=== PATIENT | female | born 1995 | race Caucasian/White ===

== ENCOUNTER 2016-08-18 20:05 | Emergency (ER) | payer OTHER ==
[~2016-08-18 20:05] MED LIST: PERCOCET1 TA1 PO
--- NOTE | 2016-08-18 22:02 | ED ORDER SUMMARY ---
..... Patient: MARIZA VALERO OrderSheet [facility] VisitID: [id number] [place] [address] 20y, F Registration Date/Time: 08/18/2016 ORDER SHEET Weight: 58.9 kg (stated) Allergies: No Known Drug Allergy GENERAL ORDERS: US Pelvic Complete w Transvag Urgent (20:32 08/18/2016 EKoroleva P.A.-C) (Ack 20:34 [facility] Stem Mounter) (Cancelled: CHANGE ORDER22:15 [facility] Stem Mounter) UA-Culture if indicated Urgent (20:33 08/18/2016 EKoroleva P.A.-C) (Ack 20:34 [facility] Stem Mounter) (20:48 EHassan R.N.) Urine Urgent (20:33 08/18/2016 EKoroleva P.A.-C) (Ack 20:34 [facility] Stem Mounter) (20:48 EHassan R.N.) Pelvic Exam Setup (20:33 08/18/2016 EKoroleva P.A.-C) (Ack 20:34 [facility] Stem Mounter) (20:48 EHassan R.N.) US Pelvic Complete Urgent (22:15 08/18/2016 [facility] Stem Mounter written order EKoroleva P.A.-C) (22:17 [facility] Stem Mounter) MEDICATION ORDERS: Macrobid PO 100 mg (NOW) (20:56 08/18/2016 EKoroleva P.A.-C) (21:31 EHassan R.N.) Motrin PO 800 mg (NOW) (21:16 08/18/2016 EKoroleva P.A.-C) (21:31 EHassan R.N.) Tramadol PO 50 mg (NOW) (21:16 08/18/2016 EKoroleva P.A.-C) (21:31 EHassan R.N.) IV FLUIDS: ORDER SHEET NOTES: [Electronically signed by Jenae BrewerAMarcin-C (22:30 08/18/2016)] [Electronically signed by Marti Patel RHina (22:42 08/18/2016)] [Electronically locked/signed by Marti Patel R.N. (22:42 08/18/2016)]
--- NOTE | 2016-08-18 22:02 | ED CLINICAL REPORT ---
Clinical Report - Physicians/Mid Levels [facility] [address] [place] [address] 08/18/2016 20:06 [id number] Time Seen: 20:33 Aug 18 2016. Arrived- By private vehicle. HISTORY OF PRESENT ILLNESS Chief Complaint: PELVIC PAIN. This started 3 weeks ENERGY ATTORNEY and still present. The symptoms are described as mild. The patient has had moderate, constant right-sided pelvic pain. No pain with urination or urinary frequency. (Patient reports IUD insertion in May, last menstrual period about a week previously lasting for 3-4 days. Pain has been consistent. No associated emesis. No urgency or frequency. Patient denies diarrhea. Denies any recent travel. Denies any recent antibiotic use. Similar episode a few years previously with excision of a dermoid-like cyst, On the right side.). REVIEW OF SYSTEMS No vomiting, headache, fever or eye discomfort. All systems otherwise negative, except as recorded above. PAST HISTORY Problems: Substance Abuse. Dyspnea. Pyelonephritis. Ovarian Cyst. Additional Surgeries: Ovary surgery. Medications: None. Allergies: No Known Drug Allergy. SOCIAL HISTORY Current every day heavy tobacco smoker. Alcohol use. No drug use. ADDITIONAL NOTES The nursing notes have been reviewed. PHYSICAL EXAM Vital Signs: 08/18/2016 20:23 BP: 124/83. HR: 94. RR: 16. O2 saturation: 96%. Temp: 98.1 F. Pain level now: 4/10. Appearance: Alert. CVS: Heart sounds normal. Respiratory: No respiratory distress. Breath sounds normal. Abdomen: Soft and nontender. : Speculum and bimanual exam performed. External inspection normal. Speculum exam normal. No cervical dilation. No cervicitis. Bimanual exam normal. Tenderness present on bimanual exam. No adnexal tenderness. Skin: Skin warm. Neuro: Oriented X 3. LABS, X-RAYS, AND EKG Laboratory Tests: UA-Culture if indicated: (STEVE: 08/18/2016 20:30) ( MsgRcvd 08/18/2016 20:52) Final results Test Result Flag Units (Reference) URINE COLOR YELLOW URINE APPEARANCE SL CLOUDY URINE GLUCOSE NEGATIVE (NEGATIVE) URINE BILIRUBIN NEGATIVE (NEGATIVE) URINE KETONE NEGATIVE (NEGATIVE) URINE SPECIFIC GRAVITY 1.010 (1.010-1.030) URINE PH 7.0 (5.0-8.0) URINE PROTEIN 1+ (NEGATIVE) URINE UROBILINOGEN 0.2 EU/dL (0.2-1.0) URINE NITRITE NEGATIVE (NEGATIVE) URINE BLOOD 2+ (NEGATIVE) URINE LEUK ESTERASE POSITIVE (NEGATIVE) URINE RBC 1-3 rbc/hpf (0-1) URINE WBC 25-50 wbc/hpf (0-1) URINE EPITHELIAL CELLS 3-5 EPI/hpf (0-5) URINE BACTERIA MODERATE (2+ TO 3+) (NONE SEEN) URINE COMMENT CULTURE INDICATED 1+ MUCUSURINE CULTURES ARE SET-UP BASED ON THE FOLLOWING CRITERIA:POSITIVE NITRITEPOSITIVE LEUKOCYTE ESTERASEGREATER THAN 10 WHITE BLOOD CELLSMODERATE (2+) OR GREATER BACTERIA Urine: (STEVE: 08/18/2016 20:30) ( MsgRcvd 08/18/2016 20:45) Final results Test Result Flag Units (Reference) URINE NEGATIVE . Note - Tests: (US: r. ovarian flow, r. ovarian simple cyst 3 cm). PROGRESS AND PROCEDURES Course of Care: Track Welder exam with BRIDGETTE Ball. Patient was signs of a right ovarian cyst, no signs of torsion, PID or ectopic. Signs of cystitis, patient will be treated for such. Encouraged by mouth intake, and follow up with CLOTH DYEING RANGE TENDER. Patient understands plan. No signs of acute surgical abdominal pathology. 08/18/2016 21:31 BP: 114/69. HR: 69. RR: 15. O2 saturation: 96%. Pain level now: 5/10. Patient is stable. Symptoms better. Patient/family counseled. Disposition: Discharged. CLINICAL IMPRESSION Acute cystitis. Single simple right ovarian cyst. INSTRUCTIONS Warnings: Further evaluation is necessary. Prescription Medications: Macrobid 100 mg: Take 1 capsule orally every 12 hours for 7 days. No refills. Substitution is permissible. Ultram 50 mg: take 1 orally every 8 hours for 3 days, as needed for pain. Dispense fifteen (15). No refills. Substitution is permissible. Pyridium 100 mg: take 1 orally every 8 hours. No refill. Substitution is permissible. (#6) Follow-up with: Devyn Arvizu MD, Obstetrics/Gynecology, , [facility], [address] [place] [address] Follow up in five days. Call for the next available appointment. (Electronically signed by Jenae Brewer P.A.-C 08/18/2016 22:30)
--- NOTE | 2016-08-18 22:02 | ED CLINICAL REPORT ---
Clinical Report - Physicians/Mid Levels Located Within [facility] [address] [place] [address] 08/18/2016 20:06 [id number] Time Seen: 20:33 Aug 18 2016. Arrived- By private vehicle. HISTORY OF PRESENT ILLNESS Chief Complaint: PELVIC PAIN. This started 3 weeks IP COUNSEL and still present. The symptoms are described as mild. The patient has had moderate, constant right-sided pelvic pain. No pain with urination or urinary frequency. (Patient reports IUD insertion in May, last menstrual period about a week previously lasting for 3-4 days. Pain has been consistent. No associated emesis. No urgency or frequency. Patient denies diarrhea. Denies any recent travel. Denies any recent antibiotic use. Similar episode a few years previously with excision of a dermoid-like cyst, On the right side.). REVIEW OF SYSTEMS No vomiting, headache, fever or eye discomfort. All systems otherwise negative, except as recorded above. PAST HISTORY Problems: Substance Abuse. Dyspnea. Pyelonephritis. Ovarian Cyst. Additional Surgeries: Ovary surgery. Medications: None. Allergies: No Known Drug Allergy. SOCIAL HISTORY Current every day heavy tobacco smoker. Alcohol use. No drug use. ADDITIONAL NOTES The nursing notes have been reviewed. PHYSICAL EXAM Vital Signs: 08/18/2016 20:23 BP: 124/83. HR: 94. RR: 16. O2 saturation: 96%. Temp: 98.1 F. Pain level now: 4/10. Appearance: Alert. CVS: Heart sounds normal. Respiratory: No respiratory distress. Breath sounds normal. Abdomen: Soft and nontender. : Speculum and bimanual exam performed. External inspection normal. Speculum exam normal. No cervical dilation. No cervicitis. Bimanual exam normal. Tenderness present on bimanual exam. No adnexal tenderness. Skin: Skin warm. Neuro: Oriented X 3. LABS, X-RAYS, AND EKG Laboratory Tests: UA-Culture if indicated: (STEVE: 08/18/2016 20:30) ( MsgRcvd 08/18/2016 20:52) Final results Test Result Flag Units (Reference) URINE COLOR YELLOW URINE APPEARANCE SL CLOUDY URINE GLUCOSE NEGATIVE (NEGATIVE) URINE BILIRUBIN NEGATIVE (NEGATIVE) URINE KETONE NEGATIVE (NEGATIVE) URINE SPECIFIC GRAVITY 1.010 (1.010-1.030) URINE PH 7.0 (5.0-8.0) URINE PROTEIN 1+ (NEGATIVE) URINE UROBILINOGEN 0.2 EU/dL (0.2-1.0) URINE NITRITE NEGATIVE (NEGATIVE) URINE BLOOD 2+ (NEGATIVE) URINE LEUK ESTERASE POSITIVE (NEGATIVE) URINE RBC 1-3 rbc/hpf (0-1) URINE WBC 25-50 wbc/hpf (0-1) URINE EPITHELIAL CELLS 3-5 EPI/hpf (0-5) URINE BACTERIA MODERATE (2+ TO 3+) (NONE SEEN) URINE COMMENT CULTURE INDICATED 1+ MUCUSURINE CULTURES ARE SET-UP BASED ON THE FOLLOWING CRITERIA:POSITIVE NITRITEPOSITIVE LEUKOCYTE ESTERASEGREATER THAN 10 WHITE BLOOD CELLSMODERATE (2+) OR GREATER BACTERIA Urine: (STEVE: 08/18/2016 20:30) ( MsgRcvd 08/18/2016 20:45) Final results Test Result Flag Units (Reference) URINE NEGATIVE . Note - Tests: (US: r. ovarian flow, r. ovarian simple cyst 3 cm). PROGRESS AND PROCEDURES Course of Care: Computer Science Professor exam with BRIDGETTE Ball. Patient was signs of a right ovarian cyst, no signs of torsion, PID or ectopic. Signs of cystitis, patient will be treated for such. Encouraged by mouth intake, and follow up with PATROL MAN. Patient understands plan. No signs of acute surgical abdominal pathology. 08/18/2016 21:31 BP: 114/69. HR: 69. RR: 15. O2 saturation: 96%. Pain level now: 5/10. Patient is stable. Symptoms better. Patient/family counseled. Disposition: Discharged. CLINICAL IMPRESSION Acute cystitis. Single simple right ovarian cyst. INSTRUCTIONS Warnings: Further evaluation is necessary. Prescription Medications: Macrobid 100 mg: Take 1 capsule orally every 12 hours for 7 days. No refills. Substitution is permissible. Ultram 50 mg: take 1 orally every 8 hours for 3 days, as needed for pain. Dispense fifteen (15). No refills. Substitution is permissible. Pyridium 100 mg: take 1 orally every 8 hours. No refill. Substitution is permissible. (#6) Follow-up with: Devyn Arvizu MD, Obstetrics/Gynecology, , [facility], [address] [place] [address] Follow up in five days. Call for the next available appointment. (Electronically signed by Jenae Brewer P.A.-C 08/18/2016 22:30)
--- NOTE | 2016-08-18 22:02 | ED NURSING NOTES ---
Clinical Report - Nurses [facility] [place] [address] 08/18/2016 20:06 Patient: MARIZA VALERO TRIAGE Triage time 2020 PM. Acuity: LEVEL 3. Chief Complaint: PELVIC PAIN. Alert. No acute distress. SEPSIS SCREEN: Sepsis Screen. Negative (no infection suspected/documented). SAMANTA COMA SCORE: Samanta Coma Scale: 15- eyes open spontaneously (4); best verbal response- oriented x 4 (5); best motor response- obeys commands (6). --20:31 Marti Patel R.N. 20:23 08/18/16. BP: 124/83 (regular adult cuff) taken on the left arm, via an automated monitor, while lying. HR: 94. RR: 16. O2 saturation: 96% on room air. Temp: 98.1 F (oral). Pain level now: 07/26. --20:31 Marti Patel R.N. Weight: 58.9 kg stated. Height/Length: 61 inches Per Patient. BMI: 24.5. --20:23 Marti Patel R.N. Medications None. --20:26 Marti Patel R.N. Allergies No Known Drug Allergy. --20:26 Marti Patel R.N. Medication/allergy information source: the patient. --20:31 Marti Patel R.N. History Arrived by private vehicle. Historian: patient and family. Accompanied by family. Primary physician (None). ( Pt states having a cyst removal about 2 years ago on the right side and has now been experiencing same pain as before initiated about 3 weeks ago, pain has progressively gotten worst since this Tuesday. Pt has been feeling nauseous, denies any vaginal discharge or trouble urinating). This is a new problem. Symptoms are constant and still present (tuesday). She has had abdominal pain. No spotting, hematuria, abnormal bleeding, flank pain or fever. Treatment FILTER WORKER: (Midol). PAST MEDICAL HX: Immunizations: up-to-date. Last normal menstrual period- 1 weeks. Sexual history - sexually active. Uses an intrauterine device. SOCIAL HX: Heavy tobacco smoker- less than 1 pack per day. Occasional alcohol use. No drug use. No infectious disease exposure. ABUSE ASSESSMENT: No report of abuse. SELF HARM ASSESSMENT: A self harm assessment was performed. The patient answered "no" to the question "Do you have thoughts of harming or killing yourself?" and "Have you recently had thoughts about harming or killing others?". FALL RISK ASSESSMENT: Fall risk assessment completed. No fall risk identified. NUTRITIONAL RISK ASSESSMENT: The nutritional risk assessment revealed no deficiencies. FUNCTIONAL ASSESSMENT: Functional assessment: no impairments noted. LEARNING NEEDS ASSESSMENT: The learning needs assessment revealed no barriers. SKIN INTEGRITY ASSESSMENT: Skin integrity risk assessment completed. No skin integrity risk identified. --20:31 Marti Patel R.N. PROBLEMS: Substance Abuse. Dyspnea. Pyelonephritis. Ovarian Cyst. --20:27 Marti Patel R.N. ADDITIONAL SURGERIES: Ovary surgery. --20:27 Marti Patel R.N. Interventions ID band on patient. --20:31 Marti Patel R.N. PHYSICAL ASSESSMENT Ambulatory to room. GENERAL / NEURO / PSYCH: Alert. Oriented X 4. RESPIRATORY: Respirations not labored. Breath sounds within normal limits. CVS: Capillary refill less than 2 seconds. GI / : Abdomen soft. No abdominal distention. Vaginal bleeding. Vaginal discharge. SKIN: Skin is warm. --20:32 Marti Patel R.N. NURSING PROGRESS NOTES The initial plan of care for this patient has been created This plan of care was discussed with the patient. Patient gowned. Warming measures: blanket applied. Reassurance given. Patient ID band checked for patient name, birthdate and medical record number: patient confirmed. Instructions provided to collect clean catch urine and patient verbalized understanding urine collected with return of yellow-colored clear urine; sample sent to lab for urinalysis. Specimen labeled in the presence of the patient. Two patient identifiers checked. Call light placed in reach. Side rails up x 1. Bed placed in lowest position. --20:32 Marti Patel R.N. 21:31 08/18/2016 Macrobid PO Capsules 100 mg given. Allergies verified and confirmed 5 rights. --21:31 Marti Patel R.N. 21:08/18/2016 Motrin PO Capsules 800 mg given. Allergies verified and confirmed 5 rights. --21:31 Marti Patel R.N. 21:08/18/2016 Tramadol (TraMADol HCl) PO Capsules 50 mg given. Allergies verified, confirmed 5 rights and sedative warning given to the patient and patient's family. --21:31 Marti Patel R.N. Reassurance given. ( waiting on ultrasound.). GI / : The patient reports abdominal pain. Two patient identifiers checked. Call light placed in reach. --21:32 Marti Patel R.N. 21:08/18/16. BP: 114/69 (regular adult cuff) taken on the left arm, via an automated monitor, while lying. HR: 69. RR: 15. O2 saturation: 96% on room air. Pain level now: 08/25. --21:32 Marti Patel R.N. DISPOSITION / DISCHARGE Departure time: 2222 PM. Condition at departure: improved and stable. The goals identified in the patient's plan of care were met. No learning barriers present. Discharge instructions provided and reviewed with the patient and parent. Reviewed medication(s) side effects, precautions, dosing and course information. Prescription(s) given to the patient. Reviewed referral to an professor of marketing. Patient verbalized understanding. Written instructions provided in Frisian. The patient was discharged by the physician career services assistant. She was discharged home and accompanied by parent. She left the Emergency Department ambulatory and via private vehicle. Parent driving. FALL RISK ASSESSMENT: Fall risk assessment completed. No fall risk identified. --22:41 Marti Patel R.N. 22:15 08/18/16. BP: 120/54. HR: 85. RR: 14. O2 saturation: 96% on room air. Temp: 98.3 F (oral). Pain level now: 06/25. --22:41 Marti Patel R.N. Locked/Released at 08/18/2016 22:42 by Marti Patel R.N.
--- NOTE | 2016-08-18 22:02 | ED ORDER SUMMARY ---
..... Patient: MARIZA VALERO OrderSheet [facility] VisitID: [id number] [place] [address] 20y, F Registration Date/Time: 08/18/2016 ORDER SHEET Weight: 58.9 kg (stated) Allergies: No Known Drug Allergy GENERAL ORDERS: US Pelvic Complete w Transvag Urgent (20:32 08/18/2016 EKoroleva P.A.-C) (Ack 20:34 CHagerty ER Therapy Coordinator) (Cancelled: CHANGE ORDER22:15 CHagerty ER Therapy Coordinator) UA-Culture if indicated Urgent (20:33 08/18/2016 EKoroleva P.A.-C) (Ack 20:34 CHagerty ER Therapy Coordinator) (20:48 EHassan R.N.) Urine Urgent (20:33 08/18/2016 EKoroleva P.A.-C) (Ack 20:34 CHagerty ER Therapy Coordinator) (20:48 EHassan R.N.) Pelvic Exam Setup (20:33 08/18/2016 EKoroleva P.A.-C) (Ack 20:34 CHagerty ER Therapy Coordinator) (20:48 EHassan R.N.) US Pelvic Complete Urgent (22:15 08/18/2016 CHagerty ER Therapy Coordinator written order EKoroleva P.A.-C) (22:17 CHagerty ER Therapy Coordinator) MEDICATION ORDERS: Macrobid PO 100 mg (NOW) (20:56 08/18/2016 EKoroleva P.A.-C) (21:31 EHassan R.N.) Motrin PO 800 mg (NOW) (21:16 08/18/2016 EKoroleva P.A.-C) (21:31 EHassan R.N.) Tramadol PO 50 mg (NOW) (21:16 08/18/2016 EKoroleva P.A.-C) (21:31 EHassan R.N.) IV FLUIDS: ORDER SHEET NOTES: [Electronically signed by eJnae BrewerAMarcin-C (22:30 08/18/2016)] [Electronically signed by Marti Patel RHina (22:42 08/18/2016)] [Electronically locked/signed by Marti Patel R.N. (22:42 08/18/2016)]
--- NOTE | 2016-08-18 22:02 | ED NURSING NOTES ---
Clinical Report - Nurses [facility] [place] [address] 08/18/2016 20:06 Patient: MARIZA VALERO TRIAGE Triage time 2020 PM. Acuity: LEVEL 3. Chief Complaint: PELVIC PAIN. Alert. No acute distress. SEPSIS SCREEN: Sepsis Screen. Negative (no infection suspected/documented). SAMANTA COMA SCORE: Samanta Coma Scale: 15- eyes open spontaneously (4); best verbal response- oriented x 4 (5); best motor response- obeys commands (6). --20:31 Marti Patel R.N. 20:23 08/18/16. BP: 124/83 (regular adult cuff) taken on the left arm, via an automated monitor, while lying. HR: 94. RR: 16. O2 saturation: 96% on room air. Temp: 98.1 F (oral). Pain level now: 07/26. --20:31 Marti Patel R.N. Weight: 58.9 kg stated. Height/Length: 61 inches Per Patient. BMI: 24.5. --20:23 Marti Patel R.N. Medications None. --20:26 Marti Patel R.N. Allergies No Known Drug Allergy. --20:26 Marti Patel R.N. Medication/allergy information source: the patient. --20:31 Marti Patel R.N. History Arrived by private vehicle. Historian: patient and family. Accompanied by family. Primary physician (None). ( Pt states having a cyst removal about 2 years ago on the right side and has now been experiencing same pain as before initiated about 3 weeks ago, pain has progressively gotten worst since this Tuesday. Pt has been feeling nauseous, denies any vaginal discharge or trouble urinating). This is a new problem. Symptoms are constant and still present (tuesday). She has had abdominal pain. No spotting, hematuria, abnormal bleeding, flank pain or fever. Treatment DIRECTOR MARKET RESEARCH: (Midol). PAST MEDICAL HX: Immunizations: up-to-date. Last normal menstrual period- 1 weeks. Sexual history - sexually active. Uses an intrauterine device. SOCIAL HX: Heavy tobacco smoker- less than 1 pack per day. Occasional alcohol use. No drug use. No infectious disease exposure. ABUSE ASSESSMENT: No report of abuse. SELF HARM ASSESSMENT: A self harm assessment was performed. The patient answered "no" to the question "Do you have thoughts of harming or killing yourself?" and "Have you recently had thoughts about harming or killing others?". FALL RISK ASSESSMENT: Fall risk assessment completed. No fall risk identified. NUTRITIONAL RISK ASSESSMENT: The nutritional risk assessment revealed no deficiencies. FUNCTIONAL ASSESSMENT: Functional assessment: no impairments noted. LEARNING NEEDS ASSESSMENT: The learning needs assessment revealed no barriers. SKIN INTEGRITY ASSESSMENT: Skin integrity risk assessment completed. No skin integrity risk identified. --20:31 Marti Patel R.N. PROBLEMS: Substance Abuse. Dyspnea. Pyelonephritis. Ovarian Cyst. --20:27 Marti Patel R.N. ADDITIONAL SURGERIES: Ovary surgery. --20:27 Marti Patel R.N. Interventions ID band on patient. --20:31 Marti Patel R.N. PHYSICAL ASSESSMENT Ambulatory to room. GENERAL / NEURO / PSYCH: Alert. Oriented X 4. RESPIRATORY: Respirations not labored. Breath sounds within normal limits. CVS: Capillary refill less than 2 seconds. GI / : Abdomen soft. No abdominal distention. Vaginal bleeding. Vaginal discharge. SKIN: Skin is warm. --20:32 Marti Paetl R.N. NURSING PROGRESS NOTES The initial plan of care for this patient has been created This plan of care was discussed with the patient. Patient gowned. Warming measures: blanket applied. Reassurance given. Patient ID band checked for patient name, birthdate and medical record number: patient confirmed. Instructions provided to collect clean catch urine and patient verbalized understanding urine collected with return of yellow-colored clear urine; sample sent to lab for urinalysis. Specimen labeled in the presence of the patient. Two patient identifiers checked. Call light placed in reach. Side rails up x 1. Bed placed in lowest position. --20:32 Marti Patel R.N. 21:31 08/18/2016 Macrobid PO Capsules 100 mg given. Allergies verified and confirmed 5 rights. --21:31 Marti Patel R.N. 21:08/18/2016 Motrin PO Capsules 800 mg given. Allergies verified and confirmed 5 rights. --21:31 Marti Patel R.N. 21:08/18/2016 Tramadol (TraMADol HCl) PO Capsules 50 mg given. Allergies verified, confirmed 5 rights and sedative warning given to the patient and patient's family. --21:31 Marti Patel R.N. Reassurance given. ( waiting on ultrasound.). GI / : The patient reports abdominal pain. Two patient identifiers checked. Call light placed in reach. --21:32 Marti Patel R.N. 21:08/18/16. BP: 114/69 (regular adult cuff) taken on the left arm, via an automated monitor, while lying. HR: 69. RR: 15. O2 saturation: 96% on room air. Pain level now: 08/25. --21:32 Marti Patel R.N. DISPOSITION / DISCHARGE Departure time: 2222 PM. Condition at departure: improved and stable. The goals identified in the patient's plan of care were met. No learning barriers present. Discharge instructions provided and reviewed with the patient and parent. Reviewed medication(s) side effects, precautions, dosing and course information. Prescription(s) given to the patient. Reviewed referral to an regional otr company driver. Patient verbalized understanding. Written instructions provided in Persian. The patient was discharged by the physician children's nursery assistant. She was discharged home and accompanied by parent. She left the Emergency Department ambulatory and via private vehicle. Parent driving. FALL RISK ASSESSMENT: Fall risk assessment completed. No fall risk identified. --22:41 Marti Patel R.N. 22:15 08/18/16. BP: 120/54. HR: 85. RR: 14. O2 saturation: 96% on room air. Temp: 98.3 F (oral). Pain level now: 06/25. --22:41 Marti Patel R.N. Locked/Released at 08/18/2016 22:42 by Marti Patel R.N.
--- NOTE | 2016-08-18 22:32 | DIAGNOSTIC IMAGING REPORT ---
PROCEDURE: US COMPLETE PELVIC W/TRANSVAG INDICATION: PAIN TECHNIQUE: Transabdominal johnson scale and color Doppler sonographic images. . The patient declined transvaginal scanning. COMPARISON: Renal ultrasound 11/11/2014 and pelvic ultrasound 07/15/2014. FINDINGS: Anteverted uterus measures 5.8 x 5.7 x 3.9 MASS centimeters. IUD in place. Right ovary measures 4.5 x 4.1 x 3.5 cm with a 3.8 cm simple cyst. Vascular flow to the right ovary is present. Left ovary is not visualized. No adnexal mass or free fluid the cul-de-sac. Stable mild right hydronephrosis. 5 mm left renal lower pole echogenic focus without acoustic shadowing. IMPRESSION: 1. 3.8 cm simple right ovarian cyst 2. IUD in place 3. Stable mild right hydronephrosis
--- NOTE | 2016-08-18 22:42 | ED DISCHARGE INSTRUCTIONS ---
Patient: MARIZA VALERO General Instructions [facility] VisitID: [id number] [place] [address] 20y, F Registration Date/Time: 08/18/2016 Acute cystitis. Single simple right ovarian cyst. INSTRUCTIONS Warnings: Further evaluation is necessary. Prescription Medications: Macrobid 100 mg: Take 1 capsule orally every 12 hours for 7 days. No refills. Substitution is permissible. Ultram 50 mg: take 1 orally every 8 hours for 3 days, as needed for pain. Dispense fifteen (15). No refills. Substitution is permissible. Pyridium 100 mg: take 1 orally every 8 hours. No refill. Substitution is permissible. (#6) Follow-up with: Devyn Arvizu MD, Obstetrics/Gynecology, , [facility], [address] [place] [address] Follow up in five days. Call for the next available appointment. ADDITIONAL INFORMATION Bladder Infection,Female (Adult) A bladder infection ("cystitis" or "UTI") usually causes a constant urge to urinate and a burning when passing urine. Urine may be cloudy, smelly or dark. There may be pain in the lower abdomen. A bladder infection occurs when bacteria from the vaginal area enter the bladder opening (urethra). This can occur from sexual intercourse, wearing tight clothing, dehydration and other factors. Home Care: Drink lots of fluids (at least 6-8 glasses a day, unless you must restrict fluids for other medical reasons). This will force the medicine into your urinary system and flush the bacteria out of your body. Avoid sexual intercourse until your symptoms are gone. Avoid caffeine, alcohol and spicy foods. These can irritate the bladder. A bladder infection is treated with antibiotics. You may also be given Pyridium (generic = phenazopyridine) to reduce the burning sensation. This medicine will cause your urine to become a bright orange color. The orange urine may stain clothing. You may wear a pad or panty-liner to protect clothing. Preventing Future Infections: Always wipe from front to back after a bowel movement. Keep the genital area clean and dry. Drink plenty of fluids each day to avoid dehydration. Both sexual partners should wash before intercourse. Urinate right after intercourse to flush out the bladder. Wear cotton underwear and cotton-lined panty hose; avoid tight-fitting pants. If you are on control pills and are having frequent bladder infections, discuss with your doctor. Follow Up: Return to this facility or see your doctor if ALL symptoms are not gone after three days of treatment. Get Prompt Medical Attention if any of the following occur: Fever of 100.4F (38C) or higher, or as directed by your healthcare provider No improvement by the third day of treatment Increasing back or abdominal pain Repeated vomiting; unable to keep medicine down Weakness, dizziness or fainting Vaginal discharge Pain, redness or swelling in the labia (outer vaginal area) Ovarian Cyst The ovary is a small organ located on each side of the uterus. During each menstrual cycle a tiny egg sac forms in the ovary. If the egg is released but does not occur, this sac usually dissolves. Sometimes, the sac may fill with fluid. It then enlarges into a painful cyst. Usually the cyst will rupture or shrink on its own. In either case, the pain gradually goes away over the next 1-3 days. If the cyst does not shrink or rupture, it may cause continued pain. Home Care: Rest in bed and avoid heavy exertion until you are feeling better. Heat to the lower abdomen usually helps (heating pad or hot packs -- a small towel soaked in hot water). You may use acetaminophen (Tylenol) or ibuprofen (Motrin, Advil) to control pain, unless another pain medicine was prescribed. [NOTE: If you have chronic liver or kidney disease or ever had a stomach ulcer or GI bleeding, talk with your doctor before using these medicines.] Follow Up: See your doctor within the next 2-3 days if your pain doesnt improve. Otherwise, follow up with your doctor after your next period or as directed by our staff. Get Prompt Medical Attention if any of the following occur: Pain worsens or fails to respond to the above measures Fever of 100.4F (38C) or higher, or as directed by your healthcare provider Heavy vaginal bleeding (soaking one pad an hour for three hours) You feel weak or dizzy Fainting Passage of a pink or johnson tissue with menstrual bleeding You have been given the following additional information: Bladder Infection, Female (Adult) Ovarian Cyst (Electronically signed by Jenae Brewer P.Edil 08/18/2016 22:30)
--- NOTE | 2016-08-18 22:42 | ED MED RECONCILIATION SUMMARY ---
Patient: MARIZA VALERO Medication Reconciliation Report [facility] VisitID: [id number] [place] [address] 20y, F Registration Date/Time: 08/18/2016 Weight: 58.9 kg Height/Length: 61 in. BMI: 24.5 ALLERGIES: No Known Drug Allergy The patient's Home Medications are listed below: NONE. The source(s) of the original Home Medication information: patient The following Medications were given to the patient in the Emergency Department: Macrobid [PO] PO 100 mg, administered: 08/18/2016 9:31:00 PM Motrin [PO] PO 800 mg, administered: 08/18/2016 9:31:00 PM Tramadol [PO] PO 50 mg, administered: 08/18/2016 9:31:00 PM The following Medications were prescribed to the patient: Macrobid 100 mg: Take 1 capsule orally every 12 hours for 7 days. No refills. Substitution is permissible. -- Jenae Brewer, P.A.-Meri Ultram 50 mg: take 1 orally every 8 hours for 3 days, as needed for pain. Dispense fifteen (15). No refills. Substitution is permissible. -- Jenae Brewer, P.A.-Meri Pyridium 100 mg: take 1 orally every 8 hours. No refill. Substitution is permissible.(#6) -- Jenae Brewer P.A.-C
--- NOTE | 2016-08-18 22:42 | ED MAR SUMMARY ---
..... Medication Administration Record [facility] [address] [place] [address] Patient: MARIZA VALERO Visit ID: [id number] 20y, F Weight: 58.9 kg Height/Length: 61 in BMI: 24.5 ALLERGIES: No Known Drug Allergy Given 08/18/2016 Marti Patel RMarcinNMarcin Medication Administered: MACROBID [PO], Dose: 100 mg Capsules PO. Medication Ordered: Macrobid PO 100 mg (NOW). Given :08/18/2016 Marti Patel RMarcinNMarcin Medication Administered: MOTRIN [PO], Dose: 800 mg Capsules PO. Medication Ordered: Motrin PO 800 mg (NOW). Given :08/18/2016 Marti Patel RMarcinNMarcin Medication Administered: TRAMADOL [PO] (TRAMADOL HCL), Dose: 50 mg Capsules PO. Medication Ordered: Tramadol PO 50 mg (NOW).
--- NOTE | 2016-08-18 22:42 | ED DISCHARGE INSTRUCTIONS ---
Patient: MARIZA VALERO General Instructions [facility] VisitID: [id number] [place] [address] 20y, F Registration Date/Time: 08/18/2016 Acute cystitis. Single simple right ovarian cyst. INSTRUCTIONS Warnings: Further evaluation is necessary. Prescription Medications: Macrobid 100 mg: Take 1 capsule orally every 12 hours for 7 days. No refills. Substitution is permissible. Ultram 50 mg: take 1 orally every 8 hours for 3 days, as needed for pain. Dispense fifteen (15). No refills. Substitution is permissible. Pyridium 100 mg: take 1 orally every 8 hours. No refill. Substitution is permissible. (#6) Follow-up with: Devyn Arvizu MD, Obstetrics/Gynecology, , [facility], [address] [place] [address] Follow up in five days. Call for the next available appointment. ADDITIONAL INFORMATION Bladder Infection,Female (Adult) A bladder infection ("cystitis" or "UTI") usually causes a constant urge to urinate and a burning when passing urine. Urine may be cloudy, smelly or dark. There may be pain in the lower abdomen. A bladder infection occurs when bacteria from the vaginal area enter the bladder opening (urethra). This can occur from sexual intercourse, wearing tight clothing, dehydration and other factors. Home Care: Drink lots of fluids (at least 6-8 glasses a day, unless you must restrict fluids for other medical reasons). This will force the medicine into your urinary system and flush the bacteria out of your body. Avoid sexual intercourse until your symptoms are gone. Avoid caffeine, alcohol and spicy foods. These can irritate the bladder. A bladder infection is treated with antibiotics. You may also be given Pyridium (generic = phenazopyridine) to reduce the burning sensation. This medicine will cause your urine to become a bright orange color. The orange urine may stain clothing. You may wear a pad or panty-liner to protect clothing. Preventing Future Infections: Always wipe from front to back after a bowel movement. Keep the genital area clean and dry. Drink plenty of fluids each day to avoid dehydration. Both sexual partners should wash before intercourse. Urinate right after intercourse to flush out the bladder. Wear cotton underwear and cotton-lined panty hose; avoid tight-fitting pants. If you are on control pills and are having frequent bladder infections, discuss with your doctor. Follow Up: Return to this facility or see your doctor if ALL symptoms are not gone after three days of treatment. Get Prompt Medical Attention if any of the following occur: Fever of 100.4F (38C) or higher, or as directed by your healthcare provider No improvement by the third day of treatment Increasing back or abdominal pain Repeated vomiting; unable to keep medicine down Weakness, dizziness or fainting Vaginal discharge Pain, redness or swelling in the labia (outer vaginal area) Ovarian Cyst The ovary is a small organ located on each side of the uterus. During each menstrual cycle a tiny egg sac forms in the ovary. If the egg is released but does not occur, this sac usually dissolves. Sometimes, the sac may fill with fluid. It then enlarges into a painful cyst. Usually the cyst will rupture or shrink on its own. In either case, the pain gradually goes away over the next 1-3 days. If the cyst does not shrink or rupture, it may cause continued pain. Home Care: Rest in bed and avoid heavy exertion until you are feeling better. Heat to the lower abdomen usually helps (heating pad or hot packs -- a small towel soaked in hot water). You may use acetaminophen (Tylenol) or ibuprofen (Motrin, Advil) to control pain, unless another pain medicine was prescribed. [NOTE: If you have chronic liver or kidney disease or ever had a stomach ulcer or GI bleeding, talk with your doctor before using these medicines.] Follow Up: See your doctor within the next 2-3 days if your pain doesnt improve. Otherwise, follow up with your doctor after your next period or as directed by our staff. Get Prompt Medical Attention if any of the following occur: Pain worsens or fails to respond to the above measures Fever of 100.4F (38C) or higher, or as directed by your healthcare provider Heavy vaginal bleeding (soaking one pad an hour for three hours) You feel weak or dizzy Fainting Passage of a pink or johnson tissue with menstrual bleeding You have been given the following additional information: Bladder Infection, Female (Adult) Ovarian Cyst (Electronically signed by Jenae Brewer P.Edil 08/18/2016 22:30)
--- NOTE | 2016-08-18 22:42 | ED MED RECONCILIATION SUMMARY ---
Patient: MARIZA VALERO Medication Reconciliation Report [facility] VisitID: [id number] [place] [address] 20y, F Registration Date/Time: 08/18/2016 Weight: 58.9 kg Height/Length: 61 in. BMI: 24.5 ALLERGIES: No Known Drug Allergy The patient's Home Medications are listed below: NONE. The source(s) of the original Home Medication information: patient The following Medications were given to the patient in the Emergency Department: Macrobid [PO] PO 100 mg, administered: 08/18/2016 9:31:00 PM Motrin [PO] PO 800 mg, administered: 08/18/2016 9:31:00 PM Tramadol [PO] PO 50 mg, administered: 08/18/2016 9:31:00 PM The following Medications were prescribed to the patient: Macrobid 100 mg: Take 1 capsule orally every 12 hours for 7 days. No refills. Substitution is permissible. -- Jenae Breewr, P.A.-Meri Ultram 50 mg: take 1 orally every 8 hours for 3 days, as needed for pain. Dispense fifteen (15). No refills. Substitution is permissible. -- Jenae Brewer, P.A.-Meri Pyridium 100 mg: take 1 orally every 8 hours. No refill. Substitution is permissible.(#6) -- Jenae Brewer P.A.-C
--- NOTE | 2016-08-18 22:42 | ED MAR SUMMARY ---
..... Medication Administration Record [facility] [address] [place] [address] Patient: MARIZA VALERO Visit ID: [id number] 20y, F Weight: 58.9 kg Height/Length: 61 in BMI: 24.5 ALLERGIES: No Known Drug Allergy Given 08/18/2016 Marti Patel RMarcinNMarcin Medication Administered: MACROBID [PO], Dose: 100 mg Capsules PO. Medication Ordered: Macrobid PO 100 mg (NOW). Given :08/18/2016 Marti Patel RMarcinNMarcin Medication Administered: MOTRIN [PO], Dose: 800 mg Capsules PO. Medication Ordered: Motrin PO 800 mg (NOW). Given :08/18/2016 Marti Patel RMarcinNMarcin Medication Administered: TRAMADOL [PO] (TRAMADOL HCL), Dose: 50 mg Capsules PO. Medication Ordered: Tramadol PO 50 mg (NOW).
== END 2016-08-18 22:20 | disposition home or self-care (01) ==
LOC: ED SRH 20:05
DX: N30.00 Acute cystitis without hematuria (principal); N83.291 Other ovarian cyst, right side; Z97.5 Presence of (intrauterine) contraceptive device; F17.200 Nicotine dependence, unspecified, uncomplicated
CPT/HCPCS: 90004; 90070; 90469; 93070

== ENCOUNTER 2016-08-22 03:04 | Emergency (ER) | payer OTHER ==
--- NOTE | 2016-08-22 03:35 | ED ORDER SUMMARY ---
..... Patient: MARIZA VALERO OrderSheet [facility] VisitID: [id number] [address] [place] [address] 20y, F Registration Date/Time: 08/22/2016 ORDER SHEET Weight: 58.9 kg Allergies: No Known Drug Allergy GENERAL ORDERS: Culture, Strep Screen Urgent (03:30 [facility]/2016 [facility] (3:40 Tish R.N.) MEDICATION ORDERS: Benadryl PO 50 mg (NOW) (03:31 08/22/[address] [facility] ) (3:39 JDeDyanaa R.N.) Levaquin PO 500 mg (NOW) (03:32 08/22/2016 [facility]) (3:40 JNikElena R.N.) IV FLUIDS: ORDER SHEET NOTES: [Electronically signed by Teetee Srinivasan R.N. (03:44 08/22/2016)] [Electronically signed by Edilson Varela DO (11:12 08/22/2016)] [Electronically locked/signed by Teetee Srinivasan R.N. (03:44 08/22/2016)]
--- NOTE | 2016-08-22 03:35 | ED CLINICAL REPORT ---
Clinical Report - Physicians/Mid Levels [facility] [address] [place] [address] 08/22/2016 3:04 Patient: MARIZA VALERO Time Seen: 03:22. Arrived- By private vehicle. Historian- patient. HISTORY OF PRESENT ILLNESS Chief Complaint: SORE THROAT. This started several days ago and is still present. It was gradual in onset and has been waxing/waning. Pain described as moderate. The patient has had a sore throat with pain upon swallowing. She has been able to swallow. She has had nasal congestion. Similar symptoms previously: Recent medical care: The patient was seen recently at this facility in the emergency department. Seen for other problems. Antibiotic was prescribed. Diagnosed as cystitis. REVIEW OF SYSTEMS No fever, nausea, diarrhea, abdominal pain or headache. No joint pain, skin rash or vomiting. She has had a cough. She has had difficulty breathing at rest (congestion for several days). Denies current . PAST HISTORY Problems: Substance Abuse. Dyspnea. Pyelonephritis. Ovarian Cyst. Surgeries: Ovary surgery. - excision of a dermoid-like cyst on the right side. SOCIAL HISTORY Smoker- current status unknown. History of drug use: marijuana. No alcohol use. ADDITIONAL NOTES The nursing notes have been reviewed. PHYSICAL EXAM Vital Signs: 08/22/2016 03:12 BP: 119/64. HR: 105. RR: 16. O2 saturation: 100%. Temp: 97.6 F. Pain level now: 5/10. Appearance: Alert. No acute distress. Head: Normal external inspection. Eyes: Conjunctivae and eyelids normal. ENT: Ears normal. Pharynx normal. No trismus present. Uvula midline. No pharyngeal erythema, mouth ulcerations, tonsillar exudate, peritonsillar mass or muffled or hoarse voice. No drooling or purulent nasal discharge. The mucous membranes are not dry. Neck: Normal inspection. Trachea midline. No adenopathy. Neck supple. CVS: Tachycardia. Heart sounds normal. Pulses normal. Respiratory: No respiratory distress. Breath sounds normal. Abdomen: Soft and nontender. No organomegaly. Skin: Normal skin color. No rash. Normal skin turgor. Extremities: Extremities exhibit normal ROM. Extremities nontender. Neuro: Oriented X 3. No motor deficit. LABS, X-RAYS, AND EKG Laboratory Tests: Culture, Strep Screen: (STEVE: 08/22/2016 03:30) ( MsgRcvd 08/22/2016 03:42) Final results Test Result Flag Units (Reference) RAPID STREP SCREEN - THROAT DATE: 08/22/16 NEGATIVE SCREEN: RAPID STREP SCREEN NEGATIVE; CONFIRMATION TO FOLLOW . Microbiology: Strep culture ordered. (pending). Pulse Oximetry: 08/22/2016 03:12 O2 saturation: 100%. (FIO2 - room air). Interpretation: normal. PROGRESS AND PROCEDURES Course of Care: No abscess now. No indication of allergy. May have strep throat - culture pending. I will change antibiotic to cover both strep and UTI (culture and sens still pending). Patient/family counseled. Old ED records reviewed. Disposition: Discharged. Condition: stable and improved. CLINICAL IMPRESSION Acute streptococcal pharyngitis Acute urinary tract infection with cystitis. INSTRUCTIONS Do not work for two days. Rest. Drink plenty of fluids. Do not smoke. Seek medical help to quit smoking. (You may stop the macrobid (nitrofurantoin) and begin the cipro). Warnings: Further evaluation is necessary in order to conduct further tests and assess the possibility of serious illness. It is very important to follow up with a physician. GENERAL WARNINGS: Return or contact your physician immediately if your condition worsens or changes unexpectedly, if not improving as expected, or if other problems arise. Prescription Medications: Cipro 500 mg: take 1 tab orally every 12 hours for 7 days. Dispense fourteen (14). No refills. Substitution is permissible. OTC Medications: Acetaminophen (available over the counter): take according to label instructions. Motrin (available over the counter): take according to label instructions. Follow-up: Follow up with your doctor in about five days. (Electronically signed by Edilson Varela DO 08/22/2016 11:12)
--- NOTE | 2016-08-22 03:35 | ED NURSING NOTES ---
Clinical Report - Nurses [facility] [address] [place] [address] 08/22/2016 3:04 Patient: MARIZA VALERO TRIAGE Triage time 03:12. Acuity: LEVEL 3. Chief Complaint: SORE THROAT. --03:15 TongoranB, R.N. 03:12 08/22/16. BP: 119/64. HR: 105. RR: 16. O2 saturation: 100%. Temp: 97.6 F. Pain level now: 08/25. --03:15 TommyyaB, R.N. Weight: 58.9 kg. Height/Length: 60 inches. BMI: 25.4. --03:15 TongoranB, R.N. Medications None. --03:14 Pao R.N. Allergies No Known Drug Allergy. --03:14 Pao R.N. History Arrived by private vehicle. Historian: patient. Accompanied by family. ( pt currently taking antibiotics was here recently, pt states just feels worse today). Treatment [employer]: None. PAST MEDICAL HX: Immunizations: up-to-date. SOCIAL HX: Heavy tobacco smoker- less than 1 pack per day. History of occasional drug use: marijuana. No alcohol use. No infectious disease exposure. SELF HARM ASSESSMENT: A self harm assessment was performed. The patient answered "no" to the question "Have you recently felt down, depressed, or hopeless?", "Have you noticed less interest or pleasure in doing things?", "Do you have thoughts of harming or killing yourself?", "Are you here because you tried to hurt yourself?", "Have you ever tried to hurt yourself before today?", "Have you recently had thoughts about harming or killing others?" and "Do you have any dangerous items in your possession?". FALL RISK ASSESSMENT: Fall risk assessment completed. No fall risk identified. NUTRITIONAL RISK ASSESSMENT: The nutritional risk assessment revealed no deficiencies. FUNCTIONAL ASSESSMENT: Functional assessment: no impairments noted. LEARNING NEEDS ASSESSMENT: The learning needs assessment revealed no barriers. ABUSE ASSESSMENT: Abuse assessment: The patient was asked "Do you feel safe in your home?". SKIN INTEGRITY ASSESSMENT: Skin integrity risk assessment completed. No skin integrity risk identified. --03:15 Tiffani Cedeno PROBLEMS: Cystitis. Substance Abuse. Dyspnea. Pyelonephritis. Ovarian Cyst. --03:14 Tiffani Cedeno ADDITIONAL SURGERIES: Ovary surgery. --03:14 Tiffani Cedeno Interventions ID band on patient. To room. --03:15 Tiffani Cedeno PHYSICAL ASSESSMENT Ambulatory to room. GENERAL / NEURO / PSYCH: Alert. Oriented X 4. Appears in no acute distress. HEENT: Pupils equal, round and reactive to light. Voice within normal limits. Mouth within normal limits upon inspection. No dental injury noted. Mucous membranes are pink. RESPIRATORY: Respirations not labored. CVS: Capillary refill less than 2 seconds. SKIN: Skin is warm and dry. Normal skin turgor. --03:15 Tiffani Cedeno NURSING PROGRESS NOTES Patient identifiers checked. Call light placed in reach. Side rails up. Bed placed in lowest position. Brakes of bed on. --03:15 Tiffani Ceedno 03:39 08/22/2016 Benadryl (DiphenhydrAMINE HCl) PO Capsules 50 mg given. Allergies verified, confirmed 5 rights and sedative warning given to the patient. --03:39 Frank Muse R.N. 03:40 08/22/2016 Levaquin (Levofloxacin) PO Tablets 500 mg given. Allergies verified and confirmed 5 rights. --03:40 Frank Muse R.N. DISPOSITION / DISCHARGE Departure time: 03:44. Condition at departure: improved. No learning barriers present. Discharge instructions provided and reviewed with the patient. Reviewed medication(s) side effects, precautions, dosing and course information. Prescription(s) given to the patient. Reviewed referral to a primary care physician. Work note given. Patient verbalized understanding. Written instructions provided in Palestinian. No warning instructions, treatment instructions, diet instructions, activity restrictions or follow up contact number given. No stop smoking instructions. The patient was discharged by the physician. She was discharged home and accompanied by family. She left the Emergency Department ambulatory and via private vehicle. Patient driving. FALL RISK ASSESSMENT: Fall risk assessment completed. No fall risk identified. --03:44 Tiffani Cedeno 03:42 08/22/16. BP: deferred. HR: deferred. RR: deferred. O2 saturation: deferred. Temp: deferred. Pain level now deferred. --03:44 Tiffani Cedeno Locked/Released at 08/22/2016 3:44 by Tiffani Cedeno
--- NOTE | 2016-08-22 03:35 | ED ORDER SUMMARY ---
..... Patient: MARIZA VALERO OrderSheet [facility] VisitID: [id number] [address] [place] [address] 20y, F Registration Date/Time: 08/22/2016 ORDER SHEET Weight: 58.9 kg Allergies: No Known Drug Allergy GENERAL ORDERS: Culture, Strep Screen Urgent (03:30 [facility] (3:40 Tish R.N.) MEDICATION ORDERS: Benadryl PO 50 mg (NOW) (03:31 [facility] (3:39 JDeDyanaa R.N.) Levaquin PO 500 mg (NOW) (03:32 08/22/2016 [facility]) (3:40 JNikElena R.N.) IV FLUIDS: ORDER SHEET NOTES: [Electronically signed by Teetee Srinivasan R.N. (03:44 08/22/2016)] [Electronically signed by Edilson Varela DO (11:12 08/22/2016)] [Electronically locked/signed by Teetee Srinivasan R.N. (03:44 08/22/2016)]
--- NOTE | 2016-08-22 11:12 | ED MAR SUMMARY ---
..... Medication Administration Record [facility] [address] [place] [address] Patient: MARIZA VALERO Visit ID: [id number] 20y, F Weight: 58.9 kg Height/Length: 60 in BMI: 25.4 ALLERGIES: No Known Drug Allergy Given 03:39 08/22/2016 Frank Muse, R.N. Medication Administered: BENADRYL [PO] (DIPHENHYDRAMINE HCL), Dose: 50 mg Capsules PO. Medication Ordered: Benadryl PO 50 mg (NOW). Given 03:40 08/22/2016 Frank Muse, R.N. Medication Administered: LEVAQUIN [PO] (LEVOFLOXACIN), Dose: 500 mg Tablets PO. Medication Ordered: Levaquin PO 500 mg (NOW).
--- NOTE | 2016-08-22 11:12 | ED DISCHARGE INSTRUCTIONS ---
Patient: MARIZA VALERO General Instructions [facility] VisitID: [id number] [place] [address] 20y, F Registration Date/Time: 08/22/2016 Acute streptococcal pharyngitis Acute urinary tract infection with cystitis. INSTRUCTIONS Do not work for two days. Rest. Drink plenty of fluids. Do not smoke. Seek medical help to quit smoking. (You may stop the macrobid (nitrofurantoin) and begin the cipro). Warnings: Further evaluation is necessary in order to conduct further tests and assess the possibility of serious illness. It is very important to follow up with a physician. GENERAL WARNINGS: Return or contact your physician immediately if your condition worsens or changes unexpectedly, if not improving as expected, or if other problems arise. Prescription Medications: Cipro 500 mg: take 1 tab orally every 12 hours for 7 days. Dispense fourteen (14). No refills. Substitution is permissible. OTC Medications: Acetaminophen (available over the counter): take according to label instructions. Motrin (available over the counter): take according to label instructions. Follow-up: Follow up with your doctor in about five days. ADDITIONAL INFORMATION Pharyngitis: Strep [Presumed] Your illness has the signs of a strep throat infection. Strep throat is a contagious illness. It is spread by coughing, kissing or by touching others after touching your mouth or nose. Symptoms include throat pain worse with swallowing, aching all over, headache and fever. You will be treated with an antibiotic, which should make you start to feel better within 1-2 days. Home Care: Rest at home and drink plenty of fluids to avoid dehydration. No school or work for the first two days on antibiotics. You will not be contagious after this time, and if you are feeling better, you can return to school or work. Take your antibiotics for a full 10 days, even if you feel better after the first few days of treatment. This is very important to prevent complications from the strep infection (such as heart or kidney disease). Children: Use acetaminophen (Tylenol) for fever, fussiness or discomfort. In infants over six months of age, you may use ibuprofen (Children's Motrin) instead of Tylenol. [NOTE: If your child has chronic liver or kidney disease or ever had a stomach ulcer or GI bleeding, talk with your doctor before using these medicines.] (Aspirin should never be used in anyone under 18 years of age who is ill with a fever. It may cause severe liver damage.) Adults: You may use acetaminophen (Tylenol) or ibuprofen (Motrin, Advil) to control pain or fever, unless another medicine was prescribed for this. [NOTE: If you have chronic liver or kidney disease or ever had a stomach ulcer or GI bleeding, talk with your doctor before using these medicines.] Throat lozenges or sprays (Chloraseptic and others) will reduce pain. Gargling with warm salt water will also reduce throat pain. Dissolve 1/2 teaspoon of salt in 1 glass of warm water. This is especially useful just before meals. Follow Up with your doctor or as directed by our staff if you are not improving over the next week. Get Prompt Medical Attention if any of the following occur: Fever over 100.5F (38.0C) oral, or over 101.5F (38.6C) rectal for more than three days New or worsening ear pain, sinus pain or headache Painful lumps in the back of your neck Unable to swallow liquids or open your mouth wide due to throat pain Trouble breathing or noisy breathing Muffled voice New rash Bladder Infection,Female (Adult) A bladder infection ("cystitis" or "UTI") usually causes a constant urge to urinate and a burning when passing urine. Urine may be cloudy, smelly or dark. There may be pain in the lower abdomen. A bladder infection occurs when bacteria from the vaginal area enter the bladder opening (urethra). This can occur from sexual intercourse, wearing tight clothing, dehydration and other factors. Home Care: Drink lots of fluids (at least 6-8 glasses a day, unless you must restrict fluids for other medical reasons). This will force the medicine into your urinary system and flush the bacteria out of your body. Avoid sexual intercourse until your symptoms are gone. Avoid caffeine, alcohol and spicy foods. These can irritate the bladder. A bladder infection is treated with antibiotics. You may also be given Pyridium (generic = phenazopyridine) to reduce the burning sensation. This medicine will cause your urine to become a bright orange color. The orange urine may stain clothing. You may wear a pad or panty-liner to protect clothing. Preventing Future Infections: Always wipe from front to back after a bowel movement. Keep the genital area clean and dry. Drink plenty of fluids each day to avoid dehydration. Both sexual partners should wash before intercourse. Urinate right after intercourse to flush out the bladder. Wear cotton underwear and cotton-lined panty hose; avoid tight-fitting pants. If you are on control pills and are having frequent bladder infections, discuss with your doctor. Follow Up: Return to this facility or see your doctor if ALL symptoms are not gone after three days of treatment. Get Prompt Medical Attention if any of the following occur: Fever of 100.4F (38C) or higher, or as directed by your healthcare provider No improvement by the third day of treatment Increasing back or abdominal pain Repeated vomiting; unable to keep medicine down Weakness, dizziness or fainting Vaginal discharge Pain, redness or swelling in the labia (outer vaginal area) How To Quit Smoking Smoking is one of the hardest habits to break. About half of all those who have ever smoked have been able to quit, and most of those (about 70%) who still smoke want to quit. Here are some of the best ways to stop smoking. Keep Trying: It takes most smokers about 8 tries before they are finally able to fully quit. So, the more often you try and fail, the better your chance of quitting the next time! So, don't give up! Go [place]: Most ex-smokers quit cold turkey. Trying to cut back gradually doesn't seem to work as well, perhaps because it continues the smoking habit. Also, it is possible to fool yourself by inhaling more while smoking fewer cigarettes. This results in the same amount of nicotine in your body! Get Support: Support programs can make an important difference, especially for the heavy smoker. These groups offer lectures, methods to change your behavior and peer support. Call the free national Quitline for more information. 675-XOVQ-EJO (126-014-6815). Low-cost or free programs are offered by many hospitals, local chapters of the [place] [employer] (395-767-7397) and the [place] [employer] [employer] (558-138-2262). Support at home is important too. Non-smokers can help by offering praise and encouragement. If the smoker fails to quit, encourage them to try again! Dawe-Nae-Ltpwulq Medicines: For those who can't quit on their own, Nicotine Replacement Therapy (NRT) may make quitting much easier. Certain aids such as the nicotine patch, gum and lozenge are available without a prescription. However, it is best to use these under the guidance of your doctor. The skin patch provides a steady supply of nicotine to the body. Nicotine gum and lozenge gives temporary bursts of low levels of nicotine. Both methods take the edge off the craving for cigarettes. WARNING: If you feel symptoms of nicotine overdose, such as nausea, vomiting, dizziness, weakness, or fast heartbeat, stop using these and see your doctor. Prescription Medicines: After evaluating your smoking patterns and prior attempts at quitting, your doctor may offer a prescription medicine such as bupropion (Zyban, Wellbutrin), varenicline (Chantix, Champix), a niocotine inhaler or nasal spray. Each has its unique advantage and side effects which your doctor can review with you. Health Benefits Of Quitting: The benefits of quitting start right away and keep improving the longer you go without smokin minutes: blood pressure and pulse return to normal 8 hours: oxygen levels return to normal 2 days: ability to smell and taste begins to improve as damaged nerves start to regrow 2-3 weeks: circulation and lung function improves 1-9 months: decreased cough, congestion and shortness of breath; less tired 1 year: risk of heart attack decreases by half 5 years: risk of lung cancer decreases by half; risk of stroke becomes the same as a non-smoker For information about how to quit smoking, visit the following links: National Cancer [place] , Clearing the Air, Quit Smoking Today - an online booklet. http://www.smokefree.gov/pubs/clearing_the_air.pdf Smokefree.gov http://smokefree.gov/ QuitNet http://www.quitnet.com/ Ciprofloxacin Hydrochloride Oral tablet What is this medicine? CIPROFLOXACIN (sip kai FLOX a sin) is a quinolone antibiotic. It is used to treat certain kinds of bacterial infections. It will not work for colds, flu, or other viral infections. How should I use this medicine? Take this medicine by mouth with a glass of water. Follow the directions on the prescription label. Take your medicine at regular intervals. Do not take your medicine more often than directed. Take all of your medicine as directed even if you think your are better. Do not skip doses or stop your medicine early. You can take this medicine with food or on an empty stomach. It can be taken with a meal that contains dairy or calcium, but do not take it alone with a dairy product, like milk or yogurt or calcium-fortified juice. A special MedGuide will be given to you by the pharmacist with each prescription and refill. Be sure to read this information carefully each time. Talk to your bath solution maker regarding the use of this medicine in children. Special care may be needed. What side effects may I notice from receiving this medicine? Side effects that you should report to your doctor or health manager intensive care unit as soon as possible: - allergic reactions like skin rash, itching or hives, swelling of the face, lips, or tongue - breathing problems - confusion, nightmares or hallucinations - feeling faint or lightheaded, falls - irregular heartbeat - joint, muscle or tendon pain or swelling - pain or trouble passing urine -persistent headache with or without blurred vision - redness, blistering, peeling or loosening of the skin, including inside the mouth - seizure - unusual pain, numbness, tingling, or weakness Side effects that usually do not require medical attention (report to your doctor or health manager intensive care unit if they continue or are bothersome): - diarrhea - nausea or stomach upset - white patches or sores in the mouth What may interact with this medicine? Do not take this medicine with any of the following medications: cisapride droperidol terfenadine tizanidine This medicine may also interact with the following medications: antacids caffeine cyclosporin didanosine (ddI) buffered tablets or powder medicines for diabetes medicines for inflammation like ibuprofen, naproxen methotrexate multivitamins omeprazole phenytoin probenecid sucralfate theophylline warfarin What if I miss a dose? If you miss a dose, take it as soon as you can. If it is almost time for your next dose, take only that dose. Do not take double or extra doses. Where should I keep my medicine? Keep out of the reach of children. Store at room temperature below 30 degrees C (86 degrees F). Keep container tightly closed. Throw away any unused medicine after the expiration date. What should I tell my health care provider before I take this medicine? They need to know if you have any of these conditions: -bone problems -cerebral disease -joint problems -irregular heartbeat -kidney disease -liver disease -myasthenia gravis -seizure disorder -tendon problems -an unusual or allergic reaction to ciprofloxacin, other antibiotics or medicines, foods, dyes, or preservatives - or trying to get -breast-feeding What should I watch for while using this medicine? Tell your doctor or health manager intensive care unit if your symptoms do not improve. Do not treat diarrhea with over the counter products. Contact your doctor if you have diarrhea that lasts more than 2 days or if it is severe and watery. You may get drowsy or dizzy. Do not drive, use machinery, or do anything that needs mental alertness until you know how this medicine affects you. Do not stand or sit up quickly, especially if you are an older patient. This reduces the risk of dizzy or fainting spells. This medicine can make you more sensitive to the sun. Keep out of the sun. If you cannot avoid being in the sun, wear protective clothing and use sunscreen. Do not use sun lamps or tanning beds/booths. Avoid antacids, aluminum, calcium, iron, magnesium, and zinc products for 6 hours before and 2 hours after taking a dose of this medicine. Acetaminophen Oral tablet What is this medicine? ACETAMINOPHEN (a set a MONICA liset fen) is a pain reliever. It is used to treat mild pain and fever. How should I use this medicine? Take this medicine by mouth with a glass of water. Follow the directions on the package or prescription label. Take your medicine at regular intervals. Do not take your medicine more often than directed. Talk to your bath solution maker regarding the use of this medicine in children. While this drug may be prescribed for children as young as 6 years of age for selected conditions, precautions do apply. What side effects may I notice from receiving this medicine? Side effects that you should report to your doctor or health manager intensive care unit as soon as possible: allergic reactions like skin rash, itching or hives, swelling of the face, lips, or tongue breathing problems fever or sore throat redness, blistering, peeling or loosening of the skin, including inside the mouth trouble passing urine or change in the amount of urine unusual bleeding or bruising unusually weak or tired yellowing of the eyes or skin Side effects that usually do not require medical attention (report to your doctor or health manager intensive care unit if they continue or are bothersome): headache nausea, stomach upset What may interact with this medicine? alcohol imatinib isoniazid other medicines with acetaminophen What if I miss a dose? If you miss a dose, take it as soon as you can. If it is almost time for your next dose, take only that dose. Do not take double or extra doses. Where should I keep my medicine? Keep out of reach of children. Store at room temperature between 20 and 25 degrees C (68 and 77 degrees F). Protect from moisture and heat. Throw away any unused medicine after the expiration date. What should I tell my health care provider before I take this medicine? They need to know if you have any of these conditions: if you frequently drink alcohol containing drinks liver disease an unusual or allergic reaction to acetaminophen, other medicines, foods, dyes or preservatives or trying to get breast-feeding What should I watch for while using this medicine? Tell your doctor or health manager intensive care unit if the pain lasts more than 10 days (5 days for children), if it gets worse, or if there is a new or different kind of pain. Also, check with your doctor if a fever lasts for more than 3 days. Do not take other medicines that contain acetaminophen with this medicine. Always read labels carefully. If you have questions, ask your doctor or pharmacist. If you take too much acetaminophen get medical help right away. Too much acetaminophen can be very dangerous and cause liver damage. Even if you do not have symptoms, it is important to get help right away. Ibuprofen Oral tablet What is this medicine? IBUPROFEN (eye BYOO proe fen) is a non-steroidal anti-inflammatory drug (NSAID). It is used for dental pain, fever, headaches or migraines, osteoarthritis, rheumatoid arthritis, or painful monthly periods. It can also relieve minor aches and pains caused by a cold, flu, or sore throat. How should I use this medicine? Take this medicine by mouth with a glass of water. Follow the directions on the prescription label. Take this medicine with food if your stomach gets upset. Try to not lie down for at least 10 minutes after you take the medicine. Take your medicine at regular intervals. Do not take your medicine more often than directed. A special MedGuide will be given to you by the pharmacist with each prescription and refill. Be sure to read this information carefully each time. Talk to your bath solution maker regarding the use of this medicine in children. Special care may be needed. What side effects may I notice from receiving this medicine? Side effects that you should report to your doctor or health manager intensive care unit as soon as possible: allergic reactions like skin rash, itching or hives, swelling of the face, lips, or tongue black or bloody stools, blood in the urine or in vomit breathing problems changes in vision chest pain general ill feeling or flu-like symptoms nausea or vomiting redness, blistering, peeling or loosening of the skin, including inside the mouth slurred speech or weakness on one side of the body stomach pain unexplained weight gain or swelling unusually weak or tired yellowing of eyes or skin Side effects that usually do not require medical attention (report to your doctor or health manager intensive care unit if they continue or are bothersome): constipation or diarrhea dizziness gas or heartburn stomach upset What may interact with this medicine? Do not take this medicine with any of the following medications: cidofovir ketorolac methotrexate pemetrexed This medicine may also interact with the following medications: alcohol aspirin diuretics lithium other drugs for inflammation like prednisone warfarin What if I miss a dose? If you miss a dose, take it as soon as you can. If it is almost time for your next dose, take only that dose. Do not take double or extra doses. Where should I keep my medicine? Keep out of the reach of children. Store at room temperature between 15 and 30 degrees C (59 and 86 degrees F). Keep container tightly closed. Throw away any unused medicine after the expiration date. What should I tell my health care provider before I take this medicine? They need to know if you have any of these conditions: asthma cigarette smoker drink more than 3 alcohol containing drinks a day heart disease or circulation problems such as heart failure or leg edema (fluid retention) high blood pressure kidney disease liver disease stomach bleeding or ulcers an unusual or allergic reaction to ibuprofen, aspirin, other NSAIDS, other medicines, foods, dyes, or preservatives or trying to get breast-feeding What should I watch for while using this medicine? Tell your doctor or healthcare professional if your symptoms do not start to get better or if they get worse. This medicine does not prevent heart attack or stroke. In fact, this medicine may increase the chance of a heart attack or stroke. The chance may increase with longer use of this medicine and in people who have heart disease. If you take aspirin to prevent heart attack or stroke, talk with your doctor or health manager intensive care unit. Do not take other medicines that contain aspirin, ibuprofen, or naproxen with this medicine. Side effects such as stomach upset, nausea, or ulcers may be more likely to occur. Many medicines available without a prescription should not be taken with this medicine. This medicine can cause ulcers and bleeding in the stomach and intestines at any time during treatment. Ulcers and bleeding can happen without warning symptoms and can cause . To reduce your risk, do not smoke cigarettes or drink alcohol while you are taking this medicine. You may get drowsy or dizzy. Do not drive, use machinery, or do anything that needs mental alertness until you know how this medicine affects you. Do not stand or sit up quickly, especially if you are an older patient. This reduces the risk of dizzy or fainting spells. This medicine can cause you to bleed more easily. Try to avoid damage to your teeth and gums when you brush or floss your teeth. You have been given the following additional information: Pharyngitis, Strep (Presumed) Bladder Infection, Female (Adult) Smoking Cessation Ciprofloxacin Hydrochloride Oral tablet Acetaminophen Oral tablet Ibuprofen Oral tablet Do not work for two days. Rest. (Electronically signed by Edilson Varela DO 08/22/2016 11:12)
--- NOTE | 2016-08-22 11:12 | ED MED RECONCILIATION SUMMARY ---
Patient: MARIZA VALERO Medication Reconciliation Report [facility] VisitID: [id number] [address] [place] [address] 20y, F Registration Date/Time: 08/22/2016 Weight: 58.9 kg Height/Length: 60 in. BMI: 25.4 ALLERGIES: No Known Drug Allergy The patient's Home Medications are listed below: NONE. The source(s) of the original Home Medication information: Not obtained. The following Medications were given to the patient in the Emergency Department: Benadryl [PO] PO 50 mg, administered: 08/22/2016 3:39:00 AM Levaquin [PO] PO 500 mg, administered: 08/22/2016 3:40:00 AM The following Medications were prescribed to the patient: Acetaminophen (available over the counter): take according to label instructions. -- Edilson Varela DO Motrin (available over the counter): take according to label instructions. -- Edilson Varela DO Cipro 500 mg: take 1 tab orally every 12 hours for 7 days. Dispense fourteen (14). No refills. Substitution is permissible. -- Edilson Varela DO
--- NOTE | 2016-08-22 11:12 | ED MED RECONCILIATION SUMMARY ---
Patient: MARIZA VALERO Medication Reconciliation Report [facility] VisitID: [id number] [address] [place] [address] 20y, F Registration Date/Time: 08/22/2016 Weight: 58.9 kg Height/Length: 60 in. BMI: 25.4 ALLERGIES: No Known Drug Allergy The patient's Home Medications are listed below: NONE. The source(s) of the original Home Medication information: Not obtained. The following Medications were given to the patient in the Emergency Department: Benadryl [PO] PO 50 mg, administered: 08/22/2016 3:39:00 AM Levaquin [PO] PO 500 mg, administered: 08/22/2016 3:40:00 AM The following Medications were prescribed to the patient: Acetaminophen (available over the counter): take according to label instructions. -- Edilson Varela DO Motrin (available over the counter): take according to label instructions. -- Edilson Varela DO Cipro 500 mg: take 1 tab orally every 12 hours for 7 days. Dispense fourteen (14). No refills. Substitution is permissible. -- Edilson Varela DO
--- NOTE | 2016-08-22 11:12 | ED MAR SUMMARY ---
..... Medication Administration Record [facility] [address] [place] [address] Patient: MARIZA VALERO Visit ID: [id number] 20y, F Weight: 58.9 kg Height/Length: 60 in BMI: 25.4 ALLERGIES: No Known Drug Allergy Given 03:39 08/22/2016 Frank Muse, R.N. Medication Administered: BENADRYL [PO] (DIPHENHYDRAMINE HCL), Dose: 50 mg Capsules PO. Medication Ordered: Benadryl PO 50 mg (NOW). Given 03:40 08/22/2016 Frank Muse, R.N. Medication Administered: LEVAQUIN [PO] (LEVOFLOXACIN), Dose: 500 mg Tablets PO. Medication Ordered: Levaquin PO 500 mg (NOW).
== END 2016-08-22 03:44 | disposition home or self-care (01) ==
LOC: ED SRH 03:04
DX: J02.0 Streptococcal pharyngitis (principal); N30.00 Acute cystitis without hematuria; F17.219 Nicotine dependence, cigarettes, with unspecified nicotine-induced disorders
CPT/HCPCS: 90154; 90159